=== PATIENT | female | born 1950 | race Caucasian/White ===

== ENCOUNTER 2021-02-06 16:14 | Inpatient (IN) | payer OTHER ==
[2021-02-06] MEDS ORDERED: PIPERACILLIN/TAZOB 4.5 GM 4.5 GM in DEXTROSE 5%-WATER 100 ML IVPB ONE (18:00)
[2021-02-06 18:08] LABS: BASO % 0.5 % (0-2.0); EOS % 1.1 % (0-4.5); HEMATOCRIT 30.4 % (32.4-45.2); HEMOGLOBIN 10.2 GM/dL (10.7-15.3); LYMPH % 21.5 % (8-40); MCH 31.6 pg (25.7-33.7); MCHC 33.5 g/dl (32.0-36.0); MEAN CELL VOLUME 94.2 fl (80-96); MEAN PLT VOLUME 8.3 fl (7.5-11.1); MONO % 7.1 % (3.8-10.2); NEUT % 69.8 % (42.8-82.8); PLATELET COUNT 213 10^3/uL (134-434); RBC 3.23 M/mm3 (3.60-5.2); RDW 13.4 % (11.6-15.6)
[2021-02-06 18:19] LABS: INR 1.28 (0.83-1.09); PROTHROMBIN TIME (PATIENT) 14.4 SEC (9.7-13.0)
[2021-02-06 18:22] LABS: ACTIVATED PTT 27.4 SECONDS (25.2-36.5)
[2021-02-06] MEDS ORDERED: PIPERACILLIN/TAZOB 4.5 GM 4.5 GM/100 ML BAG IVPB ONE (18:27)
[2021-02-06 18:31] LABS: CHLORIDE 110 mmol/L (98-107); SODIUM 141 mmol/L (136-145)
[2021-02-06 18:33] LABS: CALCIUM 8.6 mg/dL (8.5-10.1)
[2021-02-06 18:34] LABS: ALBUMIN 3.1 g/dl (3.4-5.0); ANION GAP 6 MMOL/L (8-16); BLOOD UREA NITROGEN 19.6 mg/dL (7-18); CO2 25 mmol/L (21-32); GLUCOSE,RANDOM 119 mg/dL (74-106)
[2021-02-06 18:37] LABS: CREATININE 0.9 mg/dL (0.55-1.3); SGOT/AST 15 U/L (15-37); SGPT/ALT 15 U/L (13-61)
[2021-02-06 18:39] LABS: BILIRUBIN,TOTAL 0.3 mg/dL (0.2-1)
[2021-02-06 18:40] LABS: ALK PHOS 69 U/L (45-117)
[2021-02-06 18:56] LABS: ERYTHROCYTE SEDIMENTATION RATE 55 mm/hr (0-30)
[2021-02-06] MEDS ORDERED: LABETALOL HCL 5 MG/1 ML (100MG/20 ML VIAL) IVPUSH ONE (21:05)
[2021-02-06] MEDS ORDERED: LABETALOL HCL 5 MG/1 ML (100MG/20 ML VIAL) ONE (21:12)
[2021-02-07] MEDS ORDERED: ACETAMINOPHEN 325 MG TABLET (FP) PO PRN ×2 (00:20→12:53)
[2021-02-07] MEDS ORDERED: POLYETHYLENE GLYCOL (HEALTHYLAX) 3350 17 GM PACKET PO PRN (00:20)
[2021-02-07] MEDS ORDERED: MELATONIN 5 MG TABLETS PO ONE (01:06)
[2021-02-07] MEDS ORDERED: NEBIVOLOL 2.5 MG TABLET (FP) PO ONE (01:06)
[2021-02-07] MEDS ORDERED: MELATONIN 5 MG TABLETS ONE (01:49)
[2021-02-07] MEDS: PIPERACILLIN/TAZOB 4.5 GM 4.5 GM in DEXTROSE 5%-WATER 100 ML IVPB SCH ×2 (02:50→09:26)
[2021-02-07 03:59] VITALS: BMI 31.2
[2021-02-07] MEDS: INSULIN SLIDING SCALE (NOVOLOG) 1 VIAL SQ SCH ×4 (06:03→23:11)
[2021-02-07] MEDS ORDERED: DEXTROSE 5%-WATER 100 ML IVPB ONE ×2 (08:10→15:17)
[2021-02-07] MEDS ORDERED: PIPERACILLIN/TAZOBACTAM 4.5 GM VIAL IVPB ONE (08:10)
[2021-02-07] MEDS: ENOXAPARIN NA (PORCINE) 40 MG/0.4 ML DISP.SYRIN SQ SCH (09:26)
[2021-02-07] MEDS: VALSARTAN 160 MG TABLET PO SCH ×2 (09:26→23:10)
[2021-02-07] MEDS: HYDROCHLOROTHIAZIDE 12.5 MG CAPSULE (FP) PO SCH (09:27)
[2021-02-07] MEDS ORDERED: FLU VACC QS2021-22(6MOS UP)/PF 60 MCG/0.5 ML SYRINGE IM ONE (10:00)
[2021-02-07] MEDS ORDERED: INSULIN (NOVOLOG) ASPART 100 UNITS/ML 10ML VIAL ONE (10:36)
[2021-02-07] MEDS ORDERED: PIPERACILLIN/TAZOB 3.375 GM 3.375 GM in DEXTROSE 5%-WATER - 50 ML IVPB SCH ×2 (13:15→18:00)
[2021-02-07 15:31] LABS: BASO % 0.4 % (0-2.0); EOS % 0.9 % (0-4.5); HEMOGLOBIN 10.3 GM/dL (10.7-15.3); LYMPH % 22.2 % (8-40); MCH 31.4 pg (25.7-33.7); MCHC 33.3 g/dl (32.0-36.0); MEAN CELL VOLUME 94.5 fl (80-96); MEAN PLT VOLUME 8.3 fl (7.5-11.1); NEUT % 69.5 % (42.8-82.8); PLATELET COUNT 221 10^3/uL (134-434); RBC 3.28 M/mm3 (3.60-5.2); RDW 13.5 % (11.6-15.6); WHITE BLOOD COUNT 6.4 K/mm3 (4.0-10.0)
[2021-02-07 15:47] LABS: CALCIUM 8.7 mg/dL (8.5-10.1)
[2021-02-07 15:48] LABS: BLOOD UREA NITROGEN 17.4 mg/dL (7-18)
[2021-02-07 15:51] LABS: CREATININE 1.2 mg/dL (0.55-1.3)
[2021-02-07 15:53] LABS: BILIRUBIN,TOTAL 0.4 mg/dL (0.2-1)
[2021-02-07] MEDS: CEFTRIAXONE 2 GM in DEXTROSE 5%-WATER 2 GM/100 ML BAG IVPB SCH (16:03)
[2021-02-07] MEDS ORDERED: PT OWN MED DRAWER 7, Y5N ONE (16:05)
[2021-02-07] MEDS: glyBURIDE 2.5 MG TABLET PO SCH (16:06)
[2021-02-07] MEDS ORDERED: metFORMIN HCL 500 MG TABLET (FP) PO SCH (16:30)
[2021-02-07] MEDS ORDERED: METFORMIN HCL PO SCH (22:00)
[2021-02-07] MEDS ORDERED: [UNRECOGNIZED DRUG - OTHER] PO SCH (22:00)
[2021-02-07] MEDS ORDERED: GLYBURIDE PO SCH (22:00)
[2021-02-07] MEDS ORDERED: NEBIVOLOL 2.5 MG TABLET (FP) PO SCH (22:00)
[2021-02-07] MEDS: NEBIVOLOL 5 MG TABLET (FP) PO SCH (23:09)
[2021-02-08] MEDS ORDERED: PIPERACILLIN/TAZOB 4.5 GM 4.5 GM in DEXTROSE 5%-WATER 100 ML IVPB SCH (02:00)
[2021-02-08] MEDS ORDERED: PT OWN MED DRAWER 7, Y5N ONE (06:29)
[2021-02-08] MEDS: metFORMIN HCL 500 MG TABLET (FP) PO SCH ×2 (06:30→17:02)
[2021-02-08] MEDS: glyBURIDE 2.5 MG TABLET PO SCH ×2 (06:31→17:02)
[2021-02-08] MEDS: INSULIN SLIDING SCALE (NOVOLOG) 1 VIAL SQ SCH ×4 (06:31→22:28)
[2021-02-08 08:59] LABS: BASO % 0.3 % (0-2.0); EOS % 1.6 % (0-4.5); HEMOGLOBIN 10.7 GM/dL (10.7-15.3); LYMPH % 14.6 % (8-40); MCH 31.3 pg (25.7-33.7); MCHC 33.4 g/dl (32.0-36.0); MEAN CELL VOLUME 93.7 fl (80-96); MEAN PLT VOLUME 8.1 fl (7.5-11.1); MONO % 7.6 % (3.8-10.2); NEUT % 75.9 % (42.8-82.8); PLATELET COUNT 211 10^3/uL (134-434); RBC 3.42 M/mm3 (3.60-5.2); RDW 13.3 % (11.6-15.6); WHITE BLOOD COUNT 5.4 K/mm3 (4.0-10.0)
[2021-02-08 09:23] LABS: BLOOD UREA NITROGEN 12.9 mg/dL (7-18); CALCIUM 8.9 mg/dL (8.5-10.1)
[2021-02-08 09:26] LABS: CREATININE 0.9 mg/dL (0.55-1.3)
[2021-02-08] MEDS ORDERED: DEXTROSE 5%-WATER 100 ML IVPB ONE (09:36)
[2021-02-08] MEDS: CEFTRIAXONE 2 GM in DEXTROSE 5%-WATER 2 GM/100 ML BAG IVPB SCH (09:41)
[2021-02-08] MEDS: ENOXAPARIN NA (PORCINE) 40 MG/0.4 ML DISP.SYRIN SQ SCH (09:41)
[2021-02-08] MEDS: VALSARTAN 160 MG TABLET PO SCH ×2 (09:41→22:38)
[2021-02-08] MEDS: HYDROCHLOROTHIAZIDE 12.5 MG CAPSULE (FP) PO SCH (09:41)
[2021-02-08] MEDS: NEBIVOLOL 5 MG TABLET (FP) PO SCH (22:39)
[2021-02-09] MEDS ORDERED: PT OWN MED DRAWER 7, Y5N ONE (05:34)
[2021-02-09] MEDS: metFORMIN HCL 500 MG TABLET (FP) PO SCH ×2 (06:24→16:46)
[2021-02-09] MEDS: glyBURIDE 2.5 MG TABLET PO SCH ×2 (06:24→16:47)
[2021-02-09] MEDS: INSULIN SLIDING SCALE (NOVOLOG) 1 VIAL SQ SCH ×4 (06:26→21:34)
[2021-02-09] MEDS ORDERED: DEXTROSE 5%-WATER 100 ML IVPB ONE (08:52)
[2021-02-09] MEDS: HYDROCHLOROTHIAZIDE 12.5 MG CAPSULE (FP) PO SCH (09:03)
[2021-02-09] MEDS: ENOXAPARIN NA (PORCINE) 40 MG/0.4 ML DISP.SYRIN SQ SCH (09:03)
[2021-02-09] MEDS: VALSARTAN 160 MG TABLET PO SCH ×2 (09:03→21:34)
[2021-02-09] MEDS: CEFTRIAXONE 2 GM in DEXTROSE 5%-WATER 2 GM/100 ML BAG IVPB SCH (09:03)
[2021-02-09] MEDS ORDERED: INSULIN (NOVOLOG) ASPART 100 UNITS/ML 10ML VIAL ONE (17:52)
[2021-02-09] MEDS: NEBIVOLOL 5 MG TABLET (FP) PO SCH (21:36)
[2021-02-10] MEDS ORDERED: PT OWN MED DRAWER 7, Y5N ONE ×2 (05:51→16:04)
[2021-02-10] MEDS: metFORMIN HCL 500 MG TABLET (FP) PO SCH ×2 (06:03→16:07)
[2021-02-10] MEDS: glyBURIDE 2.5 MG TABLET PO SCH ×2 (06:03→16:07)
[2021-02-10] MEDS: INSULIN SLIDING SCALE (NOVOLOG) 1 VIAL SQ SCH ×4 (06:05→22:14)
[2021-02-10] MEDS ORDERED: DEXTROSE 5%-WATER 100 ML IVPB ONE (09:32)
[2021-02-10] MEDS: CEFTRIAXONE 2 GM in DEXTROSE 5%-WATER 2 GM/100 ML BAG IVPB SCH (09:48)
[2021-02-10] MEDS: VALSARTAN 160 MG TABLET PO SCH ×3 (09:55→22:14)
[2021-02-10] MEDS: HYDROCHLOROTHIAZIDE 12.5 MG CAPSULE (FP) PO SCH ×2 (09:55→10:19)
[2021-02-10] MEDS: ENOXAPARIN NA (PORCINE) 40 MG/0.4 ML DISP.SYRIN SQ SCH (09:56)
[2021-02-10] MEDS: COLLAGENASE CLOSTRIDIUM HIST. 30 GRAMS TUBE TP SCH (15:59)
[2021-02-10] MEDS ORDERED: INSULIN (NOVOLOG) ASPART 100 UNITS/ML 10ML VIAL ONE (21:36)
[2021-02-10] MEDS: NEBIVOLOL 5 MG TABLET (FP) PO SCH (22:16)
[2021-02-11] MEDS ORDERED: PT OWN MED DRAWER 7, Y5N ONE (05:54)
[2021-02-11] MEDS: glyBURIDE 2.5 MG TABLET PO SCH ×2 (06:05→16:38)
[2021-02-11] MEDS: metFORMIN HCL 500 MG TABLET (FP) PO SCH ×2 (06:05→16:38)
[2021-02-11] MEDS: INSULIN SLIDING SCALE (NOVOLOG) 1 VIAL SQ SCH ×4 (06:05→22:22)
[2021-02-11] MEDS ORDERED: DEXTROSE 5%-WATER 100 ML IVPB ONE (08:51)
[2021-02-11] MEDS: ENOXAPARIN NA (PORCINE) 40 MG/0.4 ML DISP.SYRIN SQ SCH (09:18)
[2021-02-11] MEDS: CEFTRIAXONE 2 GM in DEXTROSE 5%-WATER 2 GM/100 ML BAG IVPB SCH (09:19)
[2021-02-11] MEDS: COLLAGENASE CLOSTRIDIUM HIST. 30 GRAMS TUBE TP SCH (09:20)
[2021-02-11] MEDS: VALSARTAN 160 MG TABLET PO SCH ×2 (09:20→21:52)
[2021-02-11] MEDS: HYDROCHLOROTHIAZIDE 12.5 MG CAPSULE (FP) PO SCH (09:23)
[2021-02-11 09:36] LABS: CALCIUM 9.1 mg/dL (8.5-10.1)
[2021-02-11 09:37] LABS: BLOOD UREA NITROGEN 21.4 mg/dL (7-18)
[2021-02-11] MEDS ORDERED: SODIUM CHLORIDE 1,000 ML IV SCH (11:00)
[2021-02-11] MEDS ORDERED: DEXTROSE 5%-0.45% SALINE 1,000 ML IV SCH ×2 (18:15→21:12)
[2021-02-11] MEDS ORDERED: LIDOCAINE HCL 2% (20ML MULTI-DOSE VIAL) ONE (19:45)
[2021-02-11] MEDS ORDERED: ONDANSETRON 4 MG/2 ML VIAL IVPUSH PRN ×2 (20:04→21:12)
[2021-02-11] MEDS ORDERED: MIDAZOLAM HCL 2 MG/2 ML SINGLE DOSE VIAL ONE (20:11)
[2021-02-11] MEDS ORDERED: LACTATED RINGERS SOLUTION 1,000 ML IV SCH ×2 (20:15→21:12)
[2021-02-11] MEDS ORDERED: hydrALAZINE HCL 20 MG/ML VIAL ONE (20:28)
[2021-02-11] MEDS ORDERED: LIDOCAINE HCL 1%, 10 MG/ML (20ML VIAL) NR ONE (20:28)
[2021-02-11] MEDS ORDERED: BUPIVACAINE HCL/PF 0.5% (5MG/ML) 10 ML VIAL IJ ONE (20:29)
[2021-02-11] MEDS ORDERED: ACETAMINOPHEN 325 MG TABLET (FP) PO PRN (21:12)
[2021-02-11] MEDS ORDERED: POLYETHYLENE GLYCOL (HEALTHYLAX) 3350 17 GM PACKET PO PRN (21:12)
[2021-02-11] MEDS: NEBIVOLOL 5 MG TABLET (FP) PO SCH (22:40)
[2021-02-12] MEDS ORDERED: PT OWN MED DRAWER 7, Y5N ONE ×2 (05:48→16:18)
[2021-02-12] MEDS: glyBURIDE 2.5 MG TABLET PO SCH ×2 (06:35→16:28)
[2021-02-12] MEDS: metFORMIN HCL 500 MG TABLET (FP) PO SCH ×2 (06:36→16:29)
[2021-02-12] MEDS: INSULIN SLIDING SCALE (NOVOLOG) 1 VIAL SQ SCH ×4 (06:41→22:30)
[2021-02-12] MEDS ORDERED: [UNRECOGNIZED DRUG - MIXTURE] PO SCH (10:00)
[2021-02-12] MEDS ORDERED: DEXTROSE 5%-WATER 100 ML IVPB ONE (10:15)
[2021-02-12] MEDS: HYDROCHLOROTHIAZIDE 12.5 MG CAPSULE (FP) PO SCH (10:23)
[2021-02-12] MEDS: VALSARTAN 160 MG TABLET PO SCH ×2 (10:25→22:29)
[2021-02-12] MEDS: ENOXAPARIN NA (PORCINE) 40 MG/0.4 ML DISP.SYRIN SQ SCH (10:25)
[2021-02-12] MEDS: CEFTRIAXONE 2 GM in DEXTROSE 5%-WATER 2 GM/100 ML BAG IVPB SCH (10:26)
[2021-02-12] MEDS: MULTIVITAMINS (DAILY MVI) TABLET (FP) PO SCH (10:26)
[2021-02-12] MEDS: COLLAGENASE CLOSTRIDIUM HIST. 30 GRAMS TUBE TP SCH (10:26)
[2021-02-12] MEDS: VANCOMYCIN 1 GRAM (PRE-DOCKED) 1,000 MG/250 ML BAG IVPB SCH (15:34)
[2021-02-12] MEDS: NEBIVOLOL 5 MG TABLET (FP) PO SCH (22:30)
[2021-02-13] MEDS ORDERED: PT OWN MED DRAWER 7, Y5N ONE (05:58)
[2021-02-13] MEDS: INSULIN SLIDING SCALE (NOVOLOG) 1 VIAL SQ SCH ×4 (06:02→21:36)
[2021-02-13] MEDS: glyBURIDE 2.5 MG TABLET PO SCH ×2 (06:02→17:21)
[2021-02-13] MEDS: metFORMIN HCL 500 MG TABLET (FP) PO SCH ×2 (06:02→17:21)
[2021-02-13 08:26] LABS: BASO % 0.5 % (0-2.0); EOS % 1.9 % (0-4.5); HEMATOCRIT 30.6 % (32.4-45.2); HEMOGLOBIN 10.3 GM/dL (10.7-15.3); LYMPH % 18.1 % (8-40); MCH 31.5 pg (25.7-33.7); MCHC 33.5 g/dl (32.0-36.0); MEAN CELL VOLUME 93.8 fl (80-96); MEAN PLT VOLUME 8.2 fl (7.5-11.1); MONO % 9.2 % (3.8-10.2); NEUT % 70.3 % (42.8-82.8); PLATELET COUNT 207 10^3/uL (134-434); RBC 3.26 M/mm3 (3.60-5.2); RDW 13.6 % (11.6-15.6); WHITE BLOOD COUNT 7.3 K/mm3 (4.0-10.0)
[2021-02-13 09:18] LABS: CALCIUM 8.7 mg/dL (8.5-10.1)
[2021-02-13 09:19] LABS: BLOOD UREA NITROGEN 21.2 mg/dL (7-18)
[2021-02-13 09:22] LABS: CREATININE 1.1 mg/dL (0.55-1.3); MAGNESIUM 1.5 mg/dL (1.8-2.4)
[2021-02-13 09:23] LABS: BILIRUBIN,TOTAL 0.3 mg/dL (0.2-1)
[2021-02-13 09:24] LABS: TOT PROT 6.6 g/dl (6.4-8.2)
[2021-02-13] MEDS ORDERED: DEXTROSE 5%-WATER 100 ML IVPB ONE (11:04)
[2021-02-13] MEDS: VALSARTAN 160 MG TABLET PO SCH ×3 (11:12→21:38)
[2021-02-13] MEDS: HYDROCHLOROTHIAZIDE 12.5 MG CAPSULE (FP) PO SCH ×2 (11:13→12:07)
[2021-02-13] MEDS: MULTIVITAMINS (DAILY MVI) TABLET (FP) PO SCH (11:13)
[2021-02-13] MEDS: ENOXAPARIN NA (PORCINE) 40 MG/0.4 ML DISP.SYRIN SQ SCH (11:13)
[2021-02-13] MEDS: CEFTRIAXONE 2 GM in DEXTROSE 5%-WATER 2 GM/100 ML BAG IVPB SCH (11:13)
[2021-02-13] MEDS: COLLAGENASE CLOSTRIDIUM HIST. 30 GRAMS TUBE TP SCH (11:14)
[2021-02-13] MEDS: VANCOMYCIN 1 GRAM (PRE-DOCKED) 1,000 MG/250 ML BAG IVPB SCH (15:03)
[2021-02-13] MEDS: NEBIVOLOL 5 MG TABLET (FP) PO SCH (21:37)
[2021-02-14] MEDS ORDERED: PT OWN MED DRAWER 7, Y5N ONE ×3 (06:00→16:41)
[2021-02-14] MEDS: glyBURIDE 2.5 MG TABLET PO SCH ×3 (06:17→16:51)
[2021-02-14] MEDS: INSULIN SLIDING SCALE (NOVOLOG) 1 VIAL SQ SCH ×4 (06:17→21:31)
[2021-02-14] MEDS: metFORMIN HCL 500 MG TABLET (FP) PO SCH ×3 (06:17→16:51)
[2021-02-14 08:03] LABS: BASO % 0.5 % (0-2.0); EOS % 1.9 % (0-4.5); HEMATOCRIT 32.5 % (32.4-45.2); HEMOGLOBIN 10.9 GM/dL (10.7-15.3); LYMPH % 21.9 % (8-40); MCH 31.8 pg (25.7-33.7); MCHC 33.4 g/dl (32.0-36.0); MEAN CELL VOLUME 95.2 fl (80-96); MEAN PLT VOLUME 8.5 fl (7.5-11.1); NEUT % 67.7 % (42.8-82.8); PLATELET COUNT 233 10^3/uL (134-434); RBC 3.41 M/mm3 (3.60-5.2); RDW 13.7 % (11.6-15.6); WHITE BLOOD COUNT 6.8 K/mm3 (4.0-10.0)
[2021-02-14 08:30] LABS: ALBUMIN 3.3 g/dl (3.4-5.0); CALCIUM 8.8 mg/dL (8.5-10.1); MAGNESIUM 1.7 mg/dL (1.8-2.4)
[2021-02-14 08:33] LABS: BLOOD UREA NITROGEN 23.3 mg/dL (7-18)
[2021-02-14 08:34] LABS: CREATININE 1.2 mg/dL (0.55-1.3); TOT PROT 7.1 g/dl (6.4-8.2)
[2021-02-14 08:35] LABS: BILIRUBIN,TOTAL 0.3 mg/dL (0.2-1)
[2021-02-14] MEDS ORDERED: DEXTROSE 5%-WATER 100 ML IVPB ONE (09:50)
[2021-02-14] MEDS: VALSARTAN 160 MG TABLET PO SCH ×2 (10:01→21:28)
[2021-02-14] MEDS: MULTIVITAMINS (DAILY MVI) TABLET (FP) PO SCH (10:01)
[2021-02-14] MEDS: CEFTRIAXONE 2 GM in DEXTROSE 5%-WATER 2 GM/100 ML BAG IVPB SCH (10:02)
[2021-02-14] MEDS: ENOXAPARIN NA (PORCINE) 40 MG/0.4 ML DISP.SYRIN SQ SCH (10:03)
[2021-02-14] MEDS: HYDROCHLOROTHIAZIDE 12.5 MG CAPSULE (FP) PO SCH (10:06)
[2021-02-14] MEDS: COLLAGENASE CLOSTRIDIUM HIST. 30 GRAMS TUBE TP SCH (10:09)
[2021-02-14] MEDS: VANCOMYCIN 1 GRAM (PRE-DOCKED) 1,000 MG/250 ML BAG IVPB SCH (13:50)
[2021-02-14] MEDS ORDERED: INSULIN (NOVOLOG) ASPART 100 UNITS/ML 10ML VIAL ONE (14:02)
[2021-02-14] MEDS: NEBIVOLOL 5 MG TABLET (FP) PO SCH (21:29)
[2021-02-15] MEDS: metFORMIN HCL 500 MG TABLET (FP) PO SCH ×2 (06:23→16:37)
[2021-02-15] MEDS: INSULIN SLIDING SCALE (NOVOLOG) 1 VIAL SQ SCH ×4 (06:43→21:08)
[2021-02-15] MEDS ORDERED: DEXTROSE 5%-WATER 100 ML IVPB ONE (09:44)
[2021-02-15] MEDS: CEFTRIAXONE 2 GM in DEXTROSE 5%-WATER 2 GM/100 ML BAG IVPB SCH (09:57)
[2021-02-15] MEDS: HYDROCHLOROTHIAZIDE 12.5 MG CAPSULE (FP) PO SCH (10:00)
[2021-02-15] MEDS: VALSARTAN 160 MG TABLET PO SCH ×2 (10:00→21:09)
[2021-02-15] MEDS: ENOXAPARIN NA (PORCINE) 40 MG/0.4 ML DISP.SYRIN SQ SCH (10:01)
[2021-02-15] MEDS: COLLAGENASE CLOSTRIDIUM HIST. 30 GRAMS TUBE TP SCH (10:01)
[2021-02-15] MEDS: MULTIVITAMINS (DAILY MVI) TABLET (FP) PO SCH (10:01)
[2021-02-15] MEDS ORDERED: INSULIN (NOVOLOG) ASPART 100 UNITS/ML 10ML VIAL ONE (20:09)
[2021-02-15] MEDS: NEBIVOLOL 5 MG TABLET (FP) PO SCH (21:09)
[2021-02-16] MEDS: INSULIN SLIDING SCALE (NOVOLOG) 1 VIAL SQ SCH ×3 (06:00→16:54)
[2021-02-16] MEDS ORDERED: DEXTROSE 5%-WATER 100 ML IVPB ONE (08:24)
[2021-02-16] MEDS: metFORMIN HCL 500 MG TABLET (FP) PO SCH ×2 (08:40→16:49)
[2021-02-16] MEDS: MULTIVITAMINS (DAILY MVI) TABLET (FP) PO SCH (09:21)
[2021-02-16] MEDS: ENOXAPARIN NA (PORCINE) 40 MG/0.4 ML DISP.SYRIN SQ SCH (09:21)
[2021-02-16] MEDS: CEFTRIAXONE 2 GM in DEXTROSE 5%-WATER 2 GM/100 ML BAG IVPB SCH (09:21)
[2021-02-16] MEDS: VALSARTAN 160 MG TABLET PO SCH (09:27)
[2021-02-16] MEDS: HYDROCHLOROTHIAZIDE 12.5 MG CAPSULE (FP) PO SCH (09:28)
[2021-02-16] MEDS: COLLAGENASE CLOSTRIDIUM HIST. 30 GRAMS TUBE TP SCH (09:28)
[2021-02-16 14:05] VITALS: BP 139/51; PULSE 45; TEMP 97.9
== END 2021-02-16 18:37 | disposition home or self-care (01) | DRG 617 ==
LOC: JER 16:14 → JERBED 02-07 → J7W 02-07 03:47
PROVIDERS: ATTEND Family Medicine
PROC: 0LBW0ZZ Excision of Left Foot Tendon, Open Approach (ICD-10-PCS; 2021-02-11)
PROC: 0JDR0ZZ Extraction of Left Foot Subcutaneous Tissue and Fascia, Open Approach (ICD-10-PCS; 2021-02-11)
PROC: 0Y6Q0Z1 Detachment at Left 1st Toe, High, Open Approach (ICD-10-PCS; principal; 2021-02-11 16:00)
DX: E11.69 Type 2 diabetes mellitus with other specified complication (principal); M86.172 Other acute osteomyelitis, left ankle and foot; M86.672 Other chronic osteomyelitis, left ankle and foot; E11.621 Type 2 diabetes mellitus with foot ulcer; E11.40 Type 2 diabetes mellitus with diabetic neuropathy, unspecified; I10 Essential (primary) hypertension; E78.5 Hyperlipidemia, unspecified; L97.529 Non-pressure chronic ulcer of other part of left foot with unspecified severity; E87.5 Hyperkalemia; R00.1 Bradycardia, unspecified
CPT/HCPCS: 36415; 73610-TC-LT-FY; 73630-TC-LT; 73719-LT; 80048; 80053; 80061; 82550; 82962; 83036; 83735; 84484; 85025; 85610; 85651; 85730; 86140; 86850; 86900; 86901; 87040; 87070; 87075; 87205; 88304-TC; 88305-TC; 88311-TC; 90686; 93005; 93010; 93306-TC; 93971-TC; 94010; 94760; 97116-GP; 97162-GP; 99285-25; A9579; C9803; G0008; U0003; U0005

== ENCOUNTER 2021-02-18 09:19 | Observation (INO) | payer OTHER ==
[2021-02-18] MEDS ORDERED: VALSARTAN 160 MG TABLET PO ONE (10:09)
[2021-02-18 10:25] LABS: BASO % 0.7 % (0-2.0); EOS % 1.4 % (0-4.5); HEMATOCRIT 31.5 % (32.4-45.2); HEMOGLOBIN 10.5 GM/dL (10.7-15.3); LYMPH % 25.2 % (8-40); MCH 31.4 pg (25.7-33.7); MCHC 33.4 g/dl (32.0-36.0); MEAN PLT VOLUME 8.7 fl (7.5-11.1); MONO % 7.2 % (3.8-10.2); NEUT % 65.5 % (42.8-82.8); PLATELET COUNT 220 10^3/uL (134-434); RBC 3.35 M/mm3 (3.60-5.2); RDW 13.4 % (11.6-15.6); WHITE BLOOD COUNT 4.9 K/mm3 (4.0-10.0)
[2021-02-18 10:42] LABS: CHLORIDE 107 mmol/L (98-107); SODIUM 138 mmol/L (136-145)
[2021-02-18 10:45] LABS: ALBUMIN 3.2 g/dl (3.4-5.0); ANION GAP 5 MMOL/L (8-16); BLOOD UREA NITROGEN 25.2 mg/dL (7-18); CO2 27 mmol/L (21-32); GLUCOSE,RANDOM 103 mg/dL (74-106)
[2021-02-18 10:47] LABS: SGPT/ALT 20 U/L (13-61)
[2021-02-18 10:48] LABS: SGOT/AST 16 U/L (15-37)
[2021-02-18 10:49] LABS: TOT PROT 7.1 g/dl (6.4-8.2)
[2021-02-18] MEDS ORDERED: HYDROCHLOROTHIAZIDE 12.5 MG CAPSULE (FP) PO ONE (10:49)
[2021-02-18 10:50] LABS: BILIRUBIN,TOTAL 0.4 mg/dL (0.2-1)
[2021-02-18 10:51] LABS: ALK PHOS 55 U/L (45-117)
[2021-02-18] MEDS ORDERED: HYDROCHLOROTHIAZIDE 25 MG TABLET (FP) ONE (10:51)
[2021-02-18] MEDS ORDERED: VALSARTAN 80 MG TABLET ONE (10:51)
[2021-02-18] MEDS ORDERED: SODIUM CHLORIDE 1,000 ML IV STA (11:06)
[2021-02-18] MEDS ORDERED: DEXTROSE 50%-WATER - 25 GM/50 ML VIAL IVPUSH ONE (12:36)
[2021-02-18] MEDS ORDERED: INSULIN REGULAR HUMAN 100 UNITS/ML *VIAL IVPUSH ONE (12:36)
[2021-02-18] MEDS ORDERED: DEXTROSE 50%-WATER 25 GM/50 ML DISP.SYRIN ONE (13:12)
[2021-02-18] MEDS ORDERED: SODIUM BICARBONATE 4.2% 5 MEQ/10 ML DISP.SYRIN IVPUSH ONE ×2 (13:37→13:59)
[2021-02-18] MEDS ORDERED: amLODIPine BESYLATE 5 MG TABLET (FP) PO SCH (16:30)
[2021-02-18] MEDS ORDERED: SODIUM ZIRCONIUM CYCLOSILICATE (LOKELMA) 5 GM PACKET ONE (16:43)
[2021-02-18] MEDS: SODIUM ZIRCONIUM CYCLOSILICATE (LOKELMA) 5 GM PACKET PO SCH (16:51)
[2021-02-18] MEDS ORDERED: amLODIPine BESYLATE 5 MG TABLET (FP) PO ONE (21:59)
[2021-02-18] MEDS ORDERED: METFORMIN HCL PO SCH (22:00)
[2021-02-18] MEDS ORDERED: GLYBURIDE PO SCH (22:00)
[2021-02-18] MEDS ORDERED: [UNRECOGNIZED DRUG - OTHER] PO SCH (22:00)
[2021-02-18 23:26] VITALS: BMI 30.6
[2021-02-19] MEDS: glyBURIDE 2.5 MG TABLET PO SCH ×2 (08:27→16:38)
[2021-02-19] MEDS: metFORMIN HCL 500 MG TABLET (FP) PO SCH ×2 (08:28→16:37)
[2021-02-19 08:41] LABS: CALCIUM 9.2 mg/dL (8.5-10.1)
[2021-02-19 08:44] LABS: CREATININE 0.9 mg/dL (0.55-1.3)
[2021-02-19 08:46] LABS: BILIRUBIN,TOTAL 0.4 mg/dL (0.2-1); TOT PROT 6.8 g/dl (6.4-8.2)
[2021-02-19] MEDS: SODIUM ZIRCONIUM CYCLOSILICATE (LOKELMA) 5 GM PACKET PO SCH (09:57)
[2021-02-19] MEDS ORDERED: amLODIPine BESYLATE 10 MG TABLET (FP) PO SCH (10:00)
[2021-02-19] MEDS ORDERED: HYDROCHLOROTHIAZIDE 12.5 MG CAPSULE (FP) PO ONE (10:08)
[2021-02-19 15:04] VITALS: BP 151/71; PULSE 50; TEMP 98.2
== END 2021-02-19 18:31 | disposition home or self-care (01) ==
LOC: JER 09:19 → JERBED 13:23 → UNDOADMOB 13:23 → INTOOBSV 13:23 → J4W 21:09 → JERBED 21:09 → J4W 02-19 10:54
PROVIDERS: ADMIT Family Medicine; ATTEND Family Medicine
PROC: 3E033GC Introduction of Other Therapeutic Substance into Peripheral Vein, Percutaneous Approach (ICD-10-PCS; principal; 2021-02-19)
PROC: 3E013VG Introduction of Insulin into Subcutaneous Tissue, Percutaneous Approach (ICD-10-PCS; 2021-02-19)
PROC: 3E0337Z Introduction of Electrolytic and Water Balance Substance into Peripheral Vein, Percutaneous Approach (ICD-10-PCS; 2021-02-19)
DX: R00.1 Bradycardia, unspecified (principal); E11.40 Type 2 diabetes mellitus with diabetic neuropathy, unspecified; E87.5 Hyperkalemia; E78.5 Hyperlipidemia, unspecified; I73.9 Peripheral vascular disease, unspecified; I10 Essential (primary) hypertension; E66.9 Obesity, unspecified; Z68.30 Body mass index [BMI] 30.0-30.9, adult; Z89.412 Acquired absence of left great toe; Z87.891 Personal history of nicotine dependence; L03.818 Cellulitis of other sites; Z29.9 Encounter for prophylactic measures, unspecified; L98.499 Non-pressure chronic ulcer of skin of other sites with unspecified severity
CPT/HCPCS: 36415; 80053; 82962; 84443; 84484; 85025; 93005; 93010; 96361; 96374; 96375; 99285-25; C9803; G0378; U0003; U0005